=== PATIENT | female | born 1940 | race Caucasian/White ===

== ENCOUNTER 2019-10-13 07:58 | Day surgery (SDC) | payer OTHER ==
[~2019-10-13] VITALS: Ht 165.1 cm; Wt 87.3 kg
[2019-10-13 08:37] VITALS: BP 149/82
[2019-10-13] MEDS ORDERED: NO HOME MEDS (08:37)
[2019-10-13] MEDS ORDERED: pneumococcal 23-VAL P-sac vacc 25 mcg/0.5ml vial IMVAC ONE (10:00)
[2019-10-13 10:15] VITALS: BP 137/78
[2019-10-13 11:43] LABS: TOTAL PROTEIN,BODY FLUID 3.3 G/DL
== END 2019-10-13 11:30 | disposition home or self-care (01) ==
LOC: SSTAY O 07:58
PROVIDERS: ATTEND Radiology Diagnostic Radiology
DX: J90 Pleural effusion, not elsewhere classified (principal); C91.10 Chronic lymphocytic leukemia of B-cell type not having achieved remission
CPT/HCPCS: 32555; 71045; 83615; 84157; 87070; 87075; C1729

== ENCOUNTER 2019-11-10 07:52 | Day surgery (SDC) | payer OTHER ==
[~2019-11-10] VITALS: Ht 165.1 cm; Wt 85.0 kg
[2019-11-10] VITALS (7 sets, daily range): BP systolic 110–136; BP diastolic 74–88
[~2019-11-10 07:52] MED LIST: NO HOME MEDS
[2019-11-10] MEDS ORDERED: C,E,1CAP PO (08:17)
== END 2019-11-10 10:55 | disposition home or self-care (01) ==
LOC: SSTAY O 07:52
PROVIDERS: ATTEND Radiology Vascular & Interventional Radiology
DX: J90 Pleural effusion, not elsewhere classified (principal)
CPT/HCPCS: 32555; 71045; C1729

== ENCOUNTER 2019-12-07 08:15 | Day surgery (SDC) | payer MEDICARE ==
[~2019-12-07] VITALS: Ht 162.6 cm; Wt 84.1 kg
[~2019-12-07 08:15] MED LIST changes: +C,E,1CAP PO; -NO HOME MEDS
[2019-12-07 08:40] VITALS: BP 118/70
[2019-12-07 09:50] VITALS: BP 134/84
[2019-12-07 10:00] VITALS: BP 119/73
[2019-12-07 10:08] VITALS: BP 122/72
[2019-12-07 10:15] VITALS: BP 131/73
== END 2019-12-07 10:28 | disposition home or self-care (01) ==
LOC: SSTAY O 08:15
PROVIDERS: ATTEND Radiology Vascular & Interventional Radiology
DX: J90 Pleural effusion, not elsewhere classified (principal)
CPT/HCPCS: 32555; 71045; C1729

== ENCOUNTER 2019-12-28 10:26 | Inpatient (IN) | payer MEDICARE ==
[~2019-12-28] VITALS: Ht 165.1 cm; Wt 84.5 kg
--- NOTE | 2019-12-28 12:09 | NUR ---
Patient is direct admit from Dr Bazzi office. Orientated to room, assessment done will continue to monitor.
[2019-12-28 12:20] VITALS: BP 129/70
[2019-12-28 12:48] LABS: HEMOGLOBIN 12.7 g/dl (12.0-16.0); RED BLOOD COUNT 4.54 X10'6 (4.20-5.60)
[2019-12-28 12:53] LABS: BASOPHILS # (AUTO) 0.2 X10'3 (0-0.2); BASOPHILS % (AUTO) 0.3 % (0-1); EOSINOPHILS # (AUTO) 0.1 X10'3 (0-0.9); EOSINOPHILS % (AUTO) 0.1 % (0-6); HEMATOCRIT 40.4 % (35.0-45.0); LYMPHOCYTES # (AUTO) 80.1 X10'3 (1.1-4.8); LYMPHOCYTES % (AUTO) 92.3 % (21-51); MEAN CORPUSCULAR HEMOGLOBIN 27.9 PG (27.0-31.0); MEAN CORPUSCULAR HGB CONC 31.4 g/dL (33.0-36.5); MEAN CORPUSCULAR VOLUME 88.9 FL (78-98); MONOCYTES # (AUTO) 1.7 X10'3 (0-0.9); NEUTROPHILS # (AUTO) 4.6 X10'3 (1.8-7.7); NEUTROPHILS % (AUTO) 5.3 % (42-75); PLATELET COUNT 133 X10'3 (140-440); RED CELL DISTRIBUTION WIDTH 16.5 % (11.5-14.5)
[2019-12-28 12:57] LABS: ALBUMIN 3.2 G/DL (3.4-5.0); ANION GAP 6 (8-16); BLOOD UREA NITROGEN 27 MG/DL (7-18); CALCIUM 8.8 MG/DL (8.5-10.1); CHLORIDE 109 MMOL/L (99-107); CREATININE 1.04 MG/DL (0.40-0.90); GLUCOSE 96 MG/DL (70-104); POTASSIUM 4.9 MMOL/L (3.5-5.1); SODIUM 142 MMOL/L (135-145); TOTAL CARBON DIOXIDE 27.2 MMOL/L (24-32); eGFR 51 ML/MIN
[2019-12-28 13:00] LABS: PARTIAL THROMBOPLASTIN TIME 24 SECONDS (22-32); WHITE BLOOD COUNT 86.6 X10'3 (4.5-11.0)
[2019-12-28 13:12] LABS: CLARITY,URINE SLIGHTLY CLOUDY (Clear); COLOR,URINE YELLOW (Yellow); GLUCOSE, URINE NEGATIVE (Neg); KETONES,URINE NEGATIVE (Neg); LEUKOCYTE ESTERASE ,URINE TRACE (Neg); NITRITES, URINE NEGATIVE (Neg); OCCULT BLOOD,URINE LARGE (Neg); PROTEIN,URINE NEGATIVE (Neg); UROBILINOGEN,URINE 0.2 E.U/dL (0.2-1.0)
[2019-12-28 13:15] LABS: UA COLLECTION TYPE VOIDED
[2019-12-28 13:25] VITALS: BP 148/84
[2019-12-28 13:39] LABS: SQUAMOUS EPITHELIAL CELL,UR MANY /LPF (FEW)
[2019-12-28 13:40] VITALS: BP 132/89
[2019-12-28 13:40] LABS: BACTERIA,URINE 1+ /HPF (Neg); RBC,URINE 20-50 /HPF (0-2)
--- NOTE | 2019-12-28 14:04 | NUR ---
patient drained 1600mls serrous drainage from right CT, Angio informed. Talked with Beverley COREA, advised to clamp tube for 1 hr. will continue to monitor.
[2019-12-28 14:08] LABS: TOTAL CELLS COUNTED 100
[2019-12-28 14:10] LABS: PLATELET ESTIMATE DECREASED
--- NOTE | 2019-12-28 14:18 | NUR ---
Dr Goldstein returned call he is aware patients WBC 86.[address] Goldstein is aware that primary RN Hailey spoke to Beverley in IR after patients Chest tube was placed and 1600ml's of fluid has come out. Per Primary RN Hailey Lowery RN stated that Dr Sinha had stated to clamp chest tube for 1 hour, Dr Goldstein aware and is also aware that Dr Sinha ordered Cytology and cultures to chest tube fluids.
[2019-12-28 14:36] LABS: GLUCOSE,BODY FLUID 102 MG/DL; LDH,BODY FLUID 124 U/L; TOTAL PROTEIN,BODY FLUID 3.6 G/DL
[2019-12-28 14:44] LABS: IMMATURE CELLS 2 % (0-0)
[2019-12-28 14:45] LABS: LYMPHOCYTES % (MANUAL) 93 % (21-51)
[2019-12-28 14:50] LABS: BFAPPEAR CLOUDY; BFCOLOR YELLOW; BFVOLUME 57 ML
[2019-12-28 14:51] LABS: BF RBC COUNT 3975 /CU MM; BF WBC COUNT 10575 /CU MM (0-1000); LYMPHOCYTES,BODY FLUID 96 %; MONOCYTES,BODY FLUID 4 %
--- NOTE | 2019-12-28 15:27 | NUR ---
chest tube unclamped monitoring fluids out of CT. DR barrientos paged to report that lab stated patient had 2% blast cells. Awaiting call back.
[2019-12-28] MEDS: acetaminophen 325mg tablet PO PRN ×2 (16:36→22:59)
--- NOTE | 2019-12-28 17:06 | NUR ---
DR Goldstein called back orders received. Commenced on regular diet. All cares given, Tylenol given for pain at CT site 03/01 with effect
--- NOTE | 2019-12-28 17:55 | NUR ---
patient stated she is a DNR . No code status available. Discussed with charge nurse Mary Hurleyiting DR barrientos to talk with patient to clarify code status.
[2019-12-28 18:00] VITALS: BP 121/66
--- NOTE | 2019-12-28 18:34 | NUR ---
Problems reprioritized. Patient report given, questions answered & plan of care reviewed with Melodie CORAE.
--- NOTE | 2019-12-28 18:45 | NUR ---
Patient in room [facility] 360. I have received report from ANMOL Hart and had the opportunity to ask questions and assume patient care.
[2019-12-28] MEDS: dextrose 5%-lactated ringers 1,000 ML IV SCH (23:00)
[2019-12-29] VITALS: BP 150/73
[2019-12-29] MEDS: acetaminophen 325mg tablet PO PRN ×2 (04:39→22:09)
--- NOTE | 2019-12-29 06:45 | NUR ---
Problems reprioritized. Patient report given, questions answered & plan of care reviewed with ANMOL Montero and ANMOL Hansen.
--- NOTE | 2019-12-29 06:49 | NUR ---
Patient in room [facility] 360. I have received report from Melodie COREA and had the opportunity to ask questions and assume patient care.
[2019-12-29 11:00] VITALS: BP 127/70
[2019-12-29] MEDS ORDERED: NO HOME MEDS (12:39)
[2019-12-29] MEDS: dextrose 5%-lactated ringers 1,000 ML IV SCH (17:53)
--- NOTE | 2019-12-29 18:12 | NUR ---
Problems reprioritized. Patient report given, questions answered & plan of care reviewed with Melodie COREA.
[2019-12-29 18:15] VITALS: BP 114/57
--- NOTE | 2019-12-29 18:16 | NUR ---
Patient in room [facility] 360. I have received report from Kylah RN and ANMOL Hansen and had the opportunity to ask questions and assume patient care.
[2019-12-30] VITALS (18 sets, daily range): BP systolic 118–176; BP diastolic 5–92
[2019-12-30 05:35] LABS: ALANINE AMINOTRANSFERASE 27 U/L (12-78); ALBUMIN 2.7 G/DL (3.4-5.0); ALKALINE PHOSPHATASE 145 IU/L (46-116); ANION GAP 5 (8-16); ASPARTATE AMINO TRANSFERASE 30 U/L (10-37); BILIRUBIN,TOTAL 0.3 MG/DL (0.1-1.0); BLOOD UREA NITROGEN 22 MG/DL (7-18); BUN/CREATININE RATIO 25.3 (6.6-38.0); CALCIUM 8.5 MG/DL (8.5-10.1); CHLORIDE 111 MMOL/L (99-107); CREATININE 0.87 MG/DL (0.40-0.90); GLUCOSE 99 MG/DL (70-104); POTASSIUM 4.3 MMOL/L (3.5-5.1); SODIUM 143 MMOL/L (135-145); TOTAL CARBON DIOXIDE 26.6 MMOL/L (24-32); TOTAL PROTEIN 5.5 G/DL (6.4-8.2); eGFR 63 ML/MIN
[2019-12-30 05:58] LABS: BASOPHILS # (AUTO) 0.1 X10'3 (0-0.2); HEMOGLOBIN 12.2 g/dl (12.0-16.0)
[2019-12-30 06:01] LABS: BASOPHILS % (AUTO) 0.1 % (0-1); EOSINOPHILS % (AUTO) 0 % (0-6); HEMATOCRIT 37.3 % (35.0-45.0); LYMPHOCYTES # (AUTO) 60.7 X10'3 (1.1-4.8); LYMPHOCYTES % (AUTO) 92.6 % (21-51); MEAN CORPUSCULAR HEMOGLOBIN 28.7 PG (27.0-31.0); MEAN CORPUSCULAR HGB CONC 32.6 g/dL (33.0-36.5); MEAN CORPUSCULAR VOLUME 88.1 FL (78-98); MEAN PLATELET VOLUME 8.9 FL (7.4-10.4); MONOCYTES # (AUTO) 1.7 X10'3 (0-0.9); MONOCYTES % (AUTO) 2.6 % (2-12); NEUTROPHILS # (AUTO) 3.1 X10'3 (1.8-7.7); NEUTROPHILS % (AUTO) 4.7 % (42-75); PLATELET COUNT 103 X10'3 (140-440); RED BLOOD COUNT 4.24 X10'6 (4.20-5.60); RED CELL DISTRIBUTION WIDTH 16.4 % (11.5-14.5)
[2019-12-30 06:16] LABS: WHITE BLOOD COUNT 65.5 X10'3 (4.5-11.0)
--- NOTE | 2019-12-30 06:36 | NUR ---
Patient in room [facility] 360. I have received report from Melodie COREA and had the opportunity to ask questions and assume patient care.
--- NOTE | 2019-12-30 06:43 | NUR ---
Problems reprioritized. Patient report given, questions answered & plan of care reviewed with ANMOL Montero and ANMOL Hansen.
[2019-12-30 08:00] LABS: ANISOCYTOSIS 1+; HYPOCHROMASIA 1+; PLATELET ESTIMATE DECREASED; POIKILOCYTOSIS FEW; TOTAL CELLS COUNTED 100
[2019-12-30] MEDS: dextrose 5%-lactated ringers 1,000 ML IV SCH (12:42)
[2019-12-30] MEDS ORDERED: LIDOcaine 1% (10mg/ml) 2ml vial ONE (16:26)
[2019-12-30] MEDS ORDERED: ringers solution, lacted 1,000 ML IV SCH (16:44)
[2019-12-30] MEDS ORDERED: morphine 4 MG/ML inj SYRINge IV PRN ×4 (16:45→19:25)
[2019-12-30] MEDS ORDERED: ondansetron/PF 4mg/2ml inj IV PRN ×2 (16:45→19:25)
[2019-12-30] MEDS ORDERED: proCHLORperazine 10 MG/2 ml inj IV PRN (16:45)
[2019-12-30] MEDS ORDERED: meperidine/PF 25mg/ml syringe IV PRN ×3 (16:45)
--- NOTE | 2019-12-30 17:02 | NUR ---
Pt transported to OR via bed. All belongings sent with pt, valuables stored in safe.
--- NOTE | 2019-12-30 17:05 | NUR ---
Report phoned to OR charge
[2019-12-30] MEDS ORDERED: sevoflurane 250ml liquid IH ONE (17:17)
[2019-12-30] MEDS ORDERED: dexamethasone sod phosphate 10mg/ml inj ONE (17:17)
[2019-12-30] MEDS ORDERED: ondansetron/PF 4mg/2ml inj ONE (17:17)
[2019-12-30] MEDS ORDERED: midazolam 2 mg/2 ml injection ONE (17:19)
[2019-12-30] MEDS ORDERED: fentaNYL /PF 50mcg/ml 5ml ampule ONE (17:23)
[2019-12-30] MEDS ORDERED: rocuronium 10mg/ml inj IV ONE (17:24)
[2019-12-30] MEDS ORDERED: propofol inj 20 ML IV ONE (17:24)
[2019-12-30] MEDS ORDERED: LIDOcaine 2% (20mg/ml) 5ml vial ONE (17:24)
[2019-12-30] MEDS ORDERED: albumin (Human) 5% 250ml 250 ML IV ONE (18:26)
[2019-12-30] MEDS ORDERED: sterile Talc 2 GM powder vial ONE (18:47)
[2019-12-30] MEDS ORDERED: ceFAZolin 1000mg inj ONE ×2 (19:09)
[2019-12-30] MEDS ORDERED: FENTANYL-0.9 % NACL/PF 100 ML IV PRN ×2 (19:10→19:25)
[2019-12-30] MEDS ORDERED: HYDROcodone/acetaminophen 10/325mg tab PO PRN (19:25)
[2019-12-30] MEDS ORDERED: metoclopramide 5 mg/ml inj IV PRN (19:25)
[2019-12-30] MEDS ORDERED: naloxone 0.4 mg/ml inj IV PRN (19:25)
[2019-12-30] MEDS ORDERED: CADD PCA waste documentation MC PRN (19:25)
[2019-12-30] MEDS ORDERED: albuterol 2.5 MG/3 ML nebule NEB PRN (19:25)
[2019-12-30 20:25] LABS: ABG BASE EXCESS -0.9 mmol/L (-2.0-3.0); ABG HCO3 24.4 mmol/L (22.0-26.0); ABG OXYGEN SATURATION 98.4 % (95-98); ABG PCO2 (T) 41.2 mmHg (35.0-45.0); ABG PH (T) 7.386 (7.350-7.450); FCOHb 0.3 % (0.5-1.5); FMetHb 0.1 % (0.3-1.12); PATIENT TEMPERATURE 36.3; RESPIRATORY RATE 12 b/min; TIDAL VOLUME 500 mL; TOTAL HEMOGLOBIN 11.7 G/dl (12.0-16.0)
[2019-12-30] MEDS: propofol 1000mg/100ml bottle 100 ML IV SCH (21:00)
[2019-12-30] MEDS: gabapentin 300mg capsule PO SCH (21:01)
[2019-12-30] MEDS: ketorolac tromethamine 15mg/ml inj. IV SCH (21:02)
--- NOTE | 2019-12-30 21:50 | NUR ---
1999..Received pt from OR via bed, et tube secure with comfit, vent settings as ordered. Chest tube (right) to suction as per orders, minimal drainage at this time.
--- NOTE | 2019-12-30 21:52 | NUR ---
2030..Assessment as noted, pt wakes up follows commands, diprivan started as per orders. at bedside, updated on pt condition, no further orders at this time.
--- NOTE | 2019-12-30 21:54 | NUR ---
2100..Family at bedside.
[2019-12-30] MEDS: albuterol 2.5 MG/3 ML nebule NEB PRN (23:12)
[2019-12-31] VITALS (24 sets, daily range): BP systolic 88–137; BP diastolic 38–67
[2019-12-31] MEDS: ceFAZolin inj. 1,000 MG in dextrose 5%-water 50ml 50 ML IV SCH ×2 (00:42→07:58)
[2019-12-31] MEDS: ketorolac tromethamine 15mg/ml inj. IV SCH ×3 (02:37→14:53)
[2019-12-31] MEDS: albuterol 2.5 MG/3 ML nebule NEB PRN (03:03)
[2019-12-31 03:39] LABS: BASOPHILS # (AUTO) 0.1 X10'3 (0-0.2); EOSINOPHILS % (AUTO) 0 % (0-6); HEMOGLOBIN 11.6 g/dl (12.0-16.0); PLATELET COUNT 90 X10'3 (140-440)
[2019-12-31 03:41] LABS: BASOPHILS % (AUTO) 0.2 % (0-1); HEMATOCRIT 36.5 % (35.0-45.0); LYMPHOCYTES # (AUTO) 56.1 X10'3 (1.1-4.8); LYMPHOCYTES % (AUTO) 88.1 % (21-51); MEAN CORPUSCULAR HEMOGLOBIN 28.1 PG (27.0-31.0); MEAN CORPUSCULAR HGB CONC 31.9 g/dL (33.0-36.5); MEAN CORPUSCULAR VOLUME 88.1 FL (78-98); MONOCYTES # (AUTO) 1.1 X10'3 (0-0.9); MONOCYTES % (AUTO) 1.8 % (2-12); NEUTROPHILS # (AUTO) 6.3 X10'3 (1.8-7.7); NEUTROPHILS % (AUTO) 9.9 % (42-75); RED BLOOD COUNT 4.14 X10'6 (4.20-5.60); RED CELL DISTRIBUTION WIDTH 16.4 % (11.5-14.5)
[2019-12-31 03:44] LABS: PARTIAL THROMBOPLASTIN TIME 27 SECONDS (22-32)
[2019-12-31 03:46] LABS: ALANINE AMINOTRANSFERASE 22 U/L (12-78); ALBUMIN 2.8 G/DL (3.4-5.0); ALKALINE PHOSPHATASE 133 IU/L (46-116); ANION GAP 7 (8-16); ASPARTATE AMINO TRANSFERASE 28 U/L (10-37); BILIRUBIN,TOTAL 0.3 MG/DL (0.1-1.0); BLOOD UREA NITROGEN 14 MG/DL (7-18); BUN/CREATININE RATIO 18.2 (6.6-38.0); CALCIUM 8.5 MG/DL (8.5-10.1); CHLORIDE 108 MMOL/L (99-107); CREATININE 0.77 MG/DL (0.40-0.90); GLUCOSE 149 MG/DL (70-104); PHOSPHORUS 3.6 MG/DL (2.3-4.5); POTASSIUM 4.3 MMOL/L (3.5-5.1); SODIUM 141 MMOL/L (135-145); TOTAL PROTEIN 5.5 G/DL (6.4-8.2); eGFR 73 ML/MIN
[2019-12-31 04:20] LABS: ABG BASE EXCESS -0.3 mmol/L (-2.0-3.0); ABG OXYGEN SATURATION 95.8 % (95-98); ABG PCO2 (T) 43.2 mmHg (35.0-45.0); FCOHb 0.3 % (0.5-1.5); FO2Hb 95.5 % (94-100); TOTAL HEMOGLOBIN 12.3 G/dl (12.0-16.0)
[2019-12-31 05:04] LABS: WHITE BLOOD COUNT 63.7 X10'3 (4.5-11.0)
[2019-12-31] MEDS: dextrose 5%-lactated ringers 1,000 ML IV SCH ×2 (05:29→15:55)
--- NOTE | 2019-12-31 05:57 | NUR ---
0000..resting quietly, no changes noted.
--- NOTE | 2019-12-31 05:58 | NUR ---
0400..No changes noted.
--- NOTE | 2019-12-31 06:22 | NUR ---
0620..Problems reprioritized. Patient report given, questions answered & plan of care reviewed with Claudia COREA.
--- NOTE | 2019-12-31 06:30 | NUR ---
Patient in room ICU 2038. I have received report from ANMOL Dolan and had the opportunity to ask questions and assume patient care.
[2019-12-31] MEDS: propofol 1000mg/100ml bottle 100 ML IV SCH (06:36)
[2019-12-31 07:23] LABS: TOTAL CELLS COUNTED 100
[2019-12-31 07:27] LABS: ANISOCYTOSIS 1+; PLATELET ESTIMATE DECREASED
[2019-12-31 07:28] LABS: LARGE PLATELETS FEW; POIKILOCYTOSIS FEW
[2019-12-31] MEDS: gabapentin 300mg capsule PO SCH ×2 (07:57→19:33)
--- NOTE | 2019-12-31 09:14 | NUR ---
Dr. Goldstein called. Received orders to decrease PEEP to 5, hold sedation, and obtain weening parameters when pt able to cooperate.
--- NOTE | 2019-12-31 09:25 | NUR ---
Pt extubated, placed on 3 L/min O2 via nasal cannula. Voice quality good, respirations are even and unlabored.
--- NOTE | 2019-12-31 09:40 | NUR ---
Right radial arterial line discontinued. Manual pressure held for 2 mins. Silk tape and gauze dressing placed. Arizmendi catheter discontinued. Pt tolerated well.
[2019-12-31] MEDS ORDERED: HYDROcodone/acetaminophen 10/325mg tab PO PRN (09:55)
--- NOTE | 2019-12-31 09:57 | NUR ---
Pt up out of bed with Physical Therapist.
--- NOTE | 2019-12-31 12:29 | NUR ---
Pt intubated yesterday for pleurodesis w/ CTx2 in place; extubated this AM and advanced to clear liquids post-op. PO 100% meals prior to OR. Will monitor for diet advancement and ONS needs pending PO hx post-op. Addendum: 12/31/19 at [address] Amended: Links added.
[2019-12-31] MEDS: ceFAZolin 1GM/D5W- ADD-VANTAGE 50 ML IV SCH (16:15)
--- NOTE | 2019-12-31 18:26 | NUR ---
Problems reprioritized. Patient report given, questions answered & plan of care reviewed with ANMOL Carballo.
--- NOTE | 2019-12-31 18:30 | NUR ---
Patient in room ICU 2038. I have received report from Daquan COREA and had the opportunity to ask questions and assume patient care.
[2020-01-01] VITALS (24 sets, daily range): BP systolic 91–114; BP diastolic 45–66
[2020-01-01] MEDS: ceFAZolin 1GM/D5W- ADD-VANTAGE 50 ML IV SCH (00:32)
[2020-01-01 03:19] LABS: BASOPHILS # (AUTO) 0.1 X10'3 (0-0.2); BASOPHILS % (AUTO) 0.1 % (0-1); EOSINOPHILS # (AUTO) 0.1 X10'3 (0-0.9); EOSINOPHILS % (AUTO) 0.1 % (0-6); HEMATOCRIT 33.2 % (35.0-45.0); HEMOGLOBIN 10.6 g/dl (12.0-16.0); LYMPHOCYTES # (AUTO) 59.6 X10'3 (1.1-4.8); LYMPHOCYTES % (AUTO) 91.7 % (21-51); MEAN CORPUSCULAR HEMOGLOBIN 28.1 PG (27.0-31.0); MEAN CORPUSCULAR VOLUME 87.8 FL (78-98); MEAN PLATELET VOLUME 8.8 FL (7.4-10.4); MONOCYTES # (AUTO) 0.7 X10'3 (0-0.9); MONOCYTES % (AUTO) 1.1 % (2-12); NEUTROPHILS # (AUTO) 4.6 X10'3 (1.8-7.7); PLATELET COUNT 100 X10'3 (140-440); RED BLOOD COUNT 3.78 X10'6 (4.20-5.60); RED CELL DISTRIBUTION WIDTH 16.8 % (11.5-14.5)
--- NOTE | 2020-01-01 03:29 | NUR ---
Patient has only voided 100mls earlier in the shift. She was encouraged to try to void but she says that she does not have the urge. She was bladder scanned with volume of only 120mls. Patient encouraged to drink some PO fluids.
--- NOTE | 2020-01-01 03:35 | NUR ---
WBC 65.0. Has had critical levels the last several days. Expected result. History of CLL. On Antibiotics.
[2020-01-01 03:37] LABS: ALANINE AMINOTRANSFERASE 28 U/L (12-78); ALBUMIN 2.4 G/DL (3.4-5.0); ALBUMIN/GLOBULIN RATIO 0.9 (1.1-1.5); ALKALINE PHOSPHATASE 132 IU/L (46-116); ANION GAP 3 (8-16); ASPARTATE AMINO TRANSFERASE 45 U/L (10-37); BILIRUBIN,TOTAL 0.3 MG/DL (0.1-1.0); BLOOD UREA NITROGEN 26 MG/DL (7-18); BUN/CREATININE RATIO 22.2 (6.6-38.0); CALCIUM 7.9 MG/DL (8.5-10.1); CHLORIDE 108 MMOL/L (99-107); CREATININE 1.17 MG/DL (0.40-0.90); GLUCOSE 108 MG/DL (70-104); POTASSIUM 4.7 MMOL/L (3.5-5.1); SODIUM 141 MMOL/L (135-145); eGFR 45 ML/MIN
[2020-01-01 04:06] LABS: ANISOCYTOSIS 1+; PLATELET ESTIMATE DECREASED; TOTAL CELLS COUNTED 100
--- NOTE | 2020-01-01 06:14 | NUR ---
Problems reprioritized. Patient report given, questions answered & plan of care reviewed with Daquan COREA.
--- NOTE | 2020-01-01 06:30 | NUR ---
Patient in room ICU 2038. I have received report from ANMOL Carballo and had the opportunity to ask questions and assume patient care.
[2020-01-01] MEDS: gabapentin 300mg capsule PO SCH (08:43)
[2020-01-01] MEDS ORDERED: albumin (Human) 5% 250ml 250 ML IV ONE (09:50)
--- NOTE | 2020-01-01 09:51 | NUR ---
Dr. Goldstein called. Discussed Radiologist's report of right apical pneumothorax. Also informed him of decreased urine output, elevated creatinine, and IV fluids currently infusing. 250 mL 5% albumin ordered.
[2020-01-01] MEDS: propofol 1000mg/100ml bottle 100 ML IV SCH (11:55)
--- NOTE | 2020-01-01 13:50 | NUR ---
Dr. Goldstein rounded on pt. Chest tube placed to water seal. Pt will stay in ICU overnight for observation. Received order to discontinue central line.
[2020-01-01] MEDS: dextrose 5%-lactated ringers 1,000 ML IV SCH (13:53)
--- NOTE | 2020-01-01 18:26 | NUR ---
Patient in room ICU 2038. I have received report from Daquan COREA and had the opportunity to ask questions and assume patient care. Pt received awake & alert. On 2L oxygen via NC. Saturation is 94-95%. RR unlabored. Chest tubes to right lateral chest x2. Chest tubes to [facility] underwater seal. CT dressing reinforced. No distress at shift change.
--- NOTE | 2020-01-01 18:26 | NUR ---
Problems reprioritized. Patient report given, questions answered & plan of care reviewed with ANMOL Souza.
[2020-01-02] VITALS (23 sets, daily range): BP systolic 91–146; BP diastolic 43–74
[2020-01-02] MEDS: acetaminophen 325mg tablet PO PRN ×2 (05:49→19:28)
[2020-01-02 06:20] LABS: BASOPHILS # (AUTO) 0.1 X10'3 (0-0.2); RED CELL DISTRIBUTION WIDTH 16.2 % (11.5-14.5)
[2020-01-02 06:22] LABS: BASOPHILS % (AUTO) 0.2 % (0-1); EOSINOPHILS # (AUTO) 0.3 X10'3 (0-0.9); EOSINOPHILS % (AUTO) 0.5 % (0-6); HEMATOCRIT 33.8 % (35.0-45.0); HEMOGLOBIN 10.8 g/dl (12.0-16.0); LYMPHOCYTES # (AUTO) 56.7 X10'3 (1.1-4.8); LYMPHOCYTES % (AUTO) 91.4 % (21-51); MEAN CORPUSCULAR HEMOGLOBIN 28.1 PG (27.0-31.0); MEAN CORPUSCULAR HGB CONC 31.8 g/dL (33.0-36.5); MEAN CORPUSCULAR VOLUME 88.3 FL (78-98); MEAN PLATELET VOLUME 9.1 FL (7.4-10.4); MONOCYTES # (AUTO) 1.5 X10'3 (0-0.9); MONOCYTES % (AUTO) 2.4 % (2-12); NEUTROPHILS # (AUTO) 3.4 X10'3 (1.8-7.7); NEUTROPHILS % (AUTO) 5.5 % (42-75); PLATELET COUNT 102 X10'3 (140-440); RED BLOOD COUNT 3.83 X10'6 (4.20-5.60)
--- NOTE | 2020-01-02 06:25 | NUR ---
Problems reprioritized. Patient report given, questions answered & plan of care reviewed with Daquan COREA.
--- NOTE | 2020-01-02 06:32 | NUR ---
Patient in room ICU 2038. I have received report from ANMOL Quintanilla and had the opportunity to ask questions and assume patient care.
[2020-01-02 09:12] LABS: ALANINE AMINOTRANSFERASE 77 U/L (12-78); ALBUMIN 2.4 G/DL (3.4-5.0); ALBUMIN/GLOBULIN RATIO 0.9 (1.1-1.5); ALKALINE PHOSPHATASE 184 IU/L (46-116); ANION GAP 5 (8-16); ASPARTATE AMINO TRANSFERASE 101 U/L (10-37); BILIRUBIN,TOTAL 0.3 MG/DL (0.1-1.0); BLOOD UREA NITROGEN 20 MG/DL (7-18); BUN/CREATININE RATIO 21.5 (6.6-38.0); CALCIUM 8.2 MG/DL (8.5-10.1); CHLORIDE 112 MMOL/L (99-107); CREATININE 0.93 MG/DL (0.40-0.90); GLUCOSE 104 MG/DL (70-104); POTASSIUM 4.5 MMOL/L (3.5-5.1); SODIUM 144 MMOL/L (135-145); TOTAL CARBON DIOXIDE 27.1 MMOL/L (24-32); TOTAL PROTEIN 5.2 G/DL (6.4-8.2); eGFR 58 ML/MIN
[2020-01-02 09:52] LABS: PLATELET ESTIMATE DECREASED; SMUDGE CELLS 2+; TOTAL CELLS COUNTED 100
[2020-01-02 09:53] LABS: ANISOCYTOSIS 1+
[2020-01-02] MEDS: dextrose 5%-lactated ringers 1,000 ML IV SCH (12:43)
--- NOTE | 2020-01-02 16:25 | NUR ---
Initial: Pt s/p right thorascopic pleurodesis and s/p extubation. Pt on regular diet with good PO intake of 75-100% avg meals, meeting nutrient needs. LBM 2/5, d/w bedside RN recommending routine bowel care and d/w dietary to add prune juice for dinner tonight. Will continue to monitor. Recommendation: 1. continue regular diet 2. recommend routine bowel care; d/w bedside RN 3. weight per rx Addendum: 01/02/20 at 1625 by Wing Brent GARCIA Amended: Links added. Addendum: 01/02/20 at 1626 by [address] Esther [address] RD I have reviewed and agree with note by Community Services Manager. Maria Esther Gallagher RD
--- NOTE | 2020-01-02 18:18 | NUR ---
Problems reprioritized. Patient report given, questions answered & plan of care reviewed with ANMOL Quintanilla.
--- NOTE | 2020-01-02 18:19 | NUR ---
Patient in room ICU 2038. I have received report from Daquan COREA and had the opportunity to ask questions and assume patient care. Pt received sitting up in recliner chair. On room air saturating 95%. No SOB. Chest tubes x2 right lateral chest. CT drainage is pale yellow along tubing. No distress at change of shift.
--- NOTE | 2020-01-02 18:30 | NUR ---
Dr Goldstein at bedside. Order received for milk of magnesia.
[2020-01-02] MEDS ORDERED: magnesium hydroxide 30ml (MOM) UD suspension PO ONE (20:00)
[2020-01-03] VITALS (24 sets, daily range): BP systolic 112–153; BP diastolic 52–97
--- NOTE | 2020-01-03 02:58 | NUR ---
RR unlabored O2 saturation 94% on room air. Right lateral chest tubes x2 connected to [place] [facility] underwater seal & drain serosanguineous fluid. No air leak. Chest tube dressing remains clean & dry. Rhythm remains sinus without ectopy. Purewick is in place, urine is dark yellow. No distress. Pt is asleep resting soundly occasionally talking in her sleep.
[2020-01-03] MEDS: dextrose 5%-lactated ringers 1,000 ML IV SCH (04:30)
[2020-01-03 04:58] LABS: BASOPHILS % (AUTO) 0.1 % (0-1); EOSINOPHILS # (AUTO) 0.1 X10'3 (0-0.9); HEMOGLOBIN 10.7 g/dl (12.0-16.0)
[2020-01-03 04:59] LABS: BASOPHILS # (AUTO) 0.1 X10'3 (0-0.2); EOSINOPHILS % (AUTO) 0.2 % (0-6); HEMATOCRIT 33.2 % (35.0-45.0); LYMPHOCYTES # (AUTO) 40.4 X10'3 (1.1-4.8); LYMPHOCYTES % (AUTO) 91.7 % (21-51); MEAN CORPUSCULAR HEMOGLOBIN 28.2 PG (27.0-31.0); MEAN CORPUSCULAR HGB CONC 32.3 g/dL (33.0-36.5); MEAN CORPUSCULAR VOLUME 87.5 FL (78-98); MEAN PLATELET VOLUME 8.9 FL (7.4-10.4); MONOCYTES # (AUTO) 1.2 X10'3 (0-0.9); MONOCYTES % (AUTO) 2.6 % (2-12); NEUTROPHILS # (AUTO) 2.4 X10'3 (1.8-7.7); NEUTROPHILS % (AUTO) 5.4 % (42-75); PLATELET COUNT 87 X10'3 (140-440); RED CELL DISTRIBUTION WIDTH 16.2 % (11.5-14.5)
[2020-01-03 05:21] LABS: ALANINE AMINOTRANSFERASE 50 U/L (12-78); ALBUMIN 2.1 G/DL (3.4-5.0); ALBUMIN/GLOBULIN RATIO 0.8 (1.1-1.5); ALKALINE PHOSPHATASE 190 IU/L (46-116); ANION GAP 3 (8-16); ASPARTATE AMINO TRANSFERASE 69 U/L (10-37); BILIRUBIN,TOTAL 0.2 MG/DL (0.1-1.0); BLOOD UREA NITROGEN 17 MG/DL (7-18); BUN/CREATININE RATIO 24.6 (6.6-38.0); CALCIUM 8.2 MG/DL (8.5-10.1); CHLORIDE 113 MMOL/L (99-107); CREATININE 0.69 MG/DL (0.40-0.90); GLUCOSE 98 MG/DL (70-104); POTASSIUM 4.3 MMOL/L (3.5-5.1); SODIUM 145 MMOL/L (135-145); TOTAL PROTEIN 4.8 G/DL (6.4-8.2); eGFR 82 ML/MIN
--- NOTE | 2020-01-03 06:25 | NUR ---
Problems reprioritized. Patient report given, questions answered & plan of care reviewed with Bertha COREA.
[2020-01-03 10:15] LABS: ANISOCYTOSIS 1+; PLATELET ESTIMATE DECREASED; SMUDGE CELLS 4+; TOTAL CELLS COUNTED 100
[2020-01-03 10:17] LABS: ELLIPTOCYTES FEW
--- NOTE | 2020-01-03 15:05 | NUR ---
Called Dr. Goldstein to discuss plan for patient. Patient refused new IV and states that she was told she would be going home today. MD notified. Received order for chest x-ray, completed. Will continue to monitor.
--- NOTE | 2020-01-03 18:30 | NUR ---
Patient in room ICU 2038. I have received report from Maureen COREA and had the opportunity to ask questions and assume patient care.
[2020-01-03] MEDS: HYDROcodone/acetaminophen 10/325mg tab PO PRN (21:02)
[2020-01-04] VITALS (20 sets, daily range): BP systolic 104–153; BP diastolic 49–80
[2020-01-04] MEDS: acetaminophen 325mg tablet PO PRN ×2 (02:55→20:43)
[2020-01-04 04:57] LABS: BASOPHILS # (AUTO) 0.1 X10'3 (0-0.2); HEMOGLOBIN 10.4 g/dl (12.0-16.0); MEAN PLATELET VOLUME 8.9 FL (7.4-10.4); NEUTROPHILS # (AUTO) 2.8 X10'3 (1.8-7.7)
[2020-01-04] MEDS: HYDROcodone/acetaminophen 10/325mg tab PO PRN (04:57)
[2020-01-04 05:01] LABS: BASOPHILS % (AUTO) 0.3 % (0-1); EOSINOPHILS # (AUTO) 0.2 X10'3 (0-0.9); EOSINOPHILS % (AUTO) 0.3 % (0-6); HEMATOCRIT 31.7 % (35.0-45.0); LYMPHOCYTES # (AUTO) 43.9 X10'3 (1.1-4.8); LYMPHOCYTES % (AUTO) 91.6 % (21-51); MEAN CORPUSCULAR HEMOGLOBIN 28.8 PG (27.0-31.0); MEAN CORPUSCULAR HGB CONC 32.8 g/dL (33.0-36.5); MEAN CORPUSCULAR VOLUME 87.9 FL (78-98); MONOCYTES % (AUTO) 2.1 % (2-12); NEUTROPHILS % (AUTO) 5.7 % (42-75); PLATELET COUNT 100 X10'3 (140-440); RED BLOOD COUNT 3.61 X10'6 (4.20-5.60); RED CELL DISTRIBUTION WIDTH 16.2 % (11.5-14.5)
[2020-01-04 05:19] LABS: ALANINE AMINOTRANSFERASE 46 U/L (12-78); ALBUMIN 2.2 G/DL (3.4-5.0); ALBUMIN/GLOBULIN RATIO 0.8 (1.1-1.5); ALKALINE PHOSPHATASE 204 IU/L (46-116); ANION GAP 4 (8-16); ASPARTATE AMINO TRANSFERASE 52 U/L (10-37); BILIRUBIN,TOTAL 0.3 MG/DL (0.1-1.0); BLOOD UREA NITROGEN 13 MG/DL (7-18); BUN/CREATININE RATIO 17.3 (6.6-38.0); CALCIUM 8.4 MG/DL (8.5-10.1); CHLORIDE 111 MMOL/L (99-107); CREATININE 0.75 MG/DL (0.40-0.90); GLUCOSE 100 MG/DL (70-104); POTASSIUM 4.3 MMOL/L (3.5-5.1); SODIUM 144 MMOL/L (135-145); TOTAL CARBON DIOXIDE 29.3 MMOL/L (24-32); TOTAL PROTEIN 4.8 G/DL (6.4-8.2); eGFR 75 ML/MIN
--- NOTE | 2020-01-04 06:24 | NUR ---
Problems reprioritized. Patient report given, questions answered & plan of care reviewed with Maureen COREA.
--- NOTE | 2020-01-04 06:30 | NUR ---
Patient in room ICU 2038. I have received report from Debbie COREA and had the opportunity to ask questions and assume patient care.
[2020-01-04 09:47] LABS: ANISOCYTOSIS 1+; PLATELET ESTIMATE DECREASED; TOTAL CELLS COUNTED 100
[2020-01-04 09:48] LABS: BURR CELLS FEW; ELLIPTOCYTES FEW
[2020-01-04 09:49] LABS: SMUDGE CELLS 3+
--- NOTE | 2020-01-04 10:30 | NUR ---
Patient received [place] for pain last night, BP has been lower today than yesterday on average. Notified PT prior to them working with patient. Grant PT exercised with patient, dangled feet, and then patient walked. She tolerated well. Lowest BP during walk was 81/49, 89/44 (59). Patient assisted into chair and BP returned to 109/58 (80). Denied dizziness throughout walk. Will continue to monitor.
--- NOTE | 2020-01-04 17:25 | NUR ---
Provided report to Adelaida COREA on surgical floor. Offered opportunity for questions. Denied further questions.
--- NOTE | 2020-01-04 18:10 | NUR ---
Transferred patient with all belongings to Khadijah, ANMOL Son observed chest tube site with no drainage. Care released to Adelaida COREA.
--- NOTE | 2020-01-04 18:39 | NUR ---
Patient in room [facility] 349. I have received report from ANMOL Son and had the opportunity to ask questions and assume patient care. Addendum: 01/04/20 at 1839 by Nena Malagon RN Amended: Links added.
--- NOTE | 2020-01-04 18:58 | NUR ---
Problems reprioritized. Patient report given, questions answered & plan of care reviewed with Isaura Kovacs RN.
[2020-01-05] VITALS: BP 122/56
[2020-01-05 05:58] LABS: BASOPHILS % (AUTO) 0.1 % (0-1); EOSINOPHILS # (AUTO) 0.1 X10'3 (0-0.9); EOSINOPHILS % (AUTO) 0.1 % (0-6); HEMATOCRIT 32.3 % (35.0-45.0); HEMOGLOBIN 10.4 g/dl (12.0-16.0); LYMPHOCYTES % (AUTO) 90.7 % (21-51); MEAN CORPUSCULAR HEMOGLOBIN 28.6 PG (27.0-31.0); MEAN CORPUSCULAR HGB CONC 32.3 g/dL (33.0-36.5); MEAN CORPUSCULAR VOLUME 88.4 FL (78-98); MEAN PLATELET VOLUME 8.8 FL (7.4-10.4); MONOCYTES # (AUTO) 1.2 X10'3 (0-0.9); MONOCYTES % (AUTO) 2.6 % (2-12); NEUTROPHILS # (AUTO) 3.1 X10'3 (1.8-7.7); NEUTROPHILS % (AUTO) 6.5 % (42-75); PLATELET COUNT 111 X10'3 (140-440); RED BLOOD COUNT 3.66 X10'6 (4.20-5.60)
[2020-01-05 06:20] LABS: WHITE BLOOD COUNT 47.4 X10'3 (4.5-11.0)
--- NOTE | 2020-01-05 06:25 | NUR ---
Problems reprioritized. Patient report given, questions answered & plan of care reviewed with ANMOL LEON.
--- NOTE | 2020-01-05 06:31 | NUR ---
Patient in room [facility] 349. I have received report from Isaura Kovacs RN and had the opportunity to ask questions and assume patient care.
[2020-01-05 06:52] LABS: ALANINE AMINOTRANSFERASE 36 U/L (12-78); ALBUMIN 2.3 G/DL (3.4-5.0); ALBUMIN/GLOBULIN RATIO 0.9 (1.1-1.5); ALKALINE PHOSPHATASE 180 IU/L (46-116); ANION GAP 4 (8-16); ASPARTATE AMINO TRANSFERASE 36 U/L (10-37); BILIRUBIN,TOTAL 0.3 MG/DL (0.1-1.0); BLOOD UREA NITROGEN 15 MG/DL (7-18); BUN/CREATININE RATIO 20.5 (6.6-38.0); CALCIUM 8.2 MG/DL (8.5-10.1); CHLORIDE 110 MMOL/L (99-107); CREATININE 0.73 MG/DL (0.40-0.90); GLUCOSE 91 MG/DL (70-104); POTASSIUM 4.2 MMOL/L (3.5-5.1); SODIUM 144 MMOL/L (135-145); TOTAL CARBON DIOXIDE 29.9 MMOL/L (24-32); eGFR 77 ML/MIN
[2020-01-05 07:04] VITALS: BP 129/63
[2020-01-05 09:27] LABS: ANISOCYTOSIS 1+; PLATELET ESTIMATE DECREASED; TOTAL CELLS COUNTED 100
[2020-01-05 09:28] LABS: ELLIPTOCYTES FEW
[2020-01-05 09:30] LABS: SMUDGE CELLS 3+
[2020-01-05 11:00] VITALS: BP 101/53
--- NOTE | 2020-01-05 14:30 | NUR ---
Pt discharged to home at 1425 with all belongings, in private vehicle, accompanied by . Discharge instructions and medications reviewed. No new prescriptions ordered at this time. Pt instructed to follow up with Dr Goldstein on 01/10. Pt escorted to front lobby via wheelchair by PCT.
== END 2020-01-05 14:25 | disposition home or self-care (01) | DRG 821 ==
LOC: SUR 3N 11:32 → ICU 2S 12-30 18:02 → SUR 3N 01-04 18:24
PROVIDERS: ADMIT Surgery; ATTEND Surgery
PROC: 0W9930Z Drainage of Right Pleural Cavity with Drainage Device, Percutaneous Approach (ICD-10-PCS; 2019-12-28)
PROC: 0B5N0ZZ Destruction of Right Pleura, Open Approach (ICD-10-PCS; principal; 2019-12-30 17:17)
DX: C91.10 Chronic lymphocytic leukemia of B-cell type not having achieved remission (principal); J90 Pleural effusion, not elsewhere classified
CPT/HCPCS: 32557; 36415; 36600; 71045; 71250; 80048; 80053; 81001; 82803; 82945; 82948; 83615; 83735; 84100; 84157; 85018; 85025; 85610; 85730; 87070; 87081; 89051; 93005; 94002; 94003; 94640; 94760; 97110; 97116; 97162; 97530; A4618; A6258; A6449; A7000; A7048; C1758; C9250; G0378; J0690; J1100; J1885; J2001; J2250; J2405; J2704; J3010; J7060; J7120; J7121; P9045